=== PATIENT | female | born 1975 | race Caucasian/White ===

== ENCOUNTER → 2017-04-24 | Outpatient (CLI) | payer OTHER ==
[~2017-04-24] MED LIST: SODIUM CHLORIDE 0.9% 500 ML in EMPTY BAG 1 BAG IV PRN
[2017-04-24 09:17] VITALS: RESP 16
[2017-04-24 12:16] VITALS: BP 131/87; PULSE 93; TEMP 98
== END | disposition home or self-care (01) ==
LOC: PROCWHC3 08:53
PROVIDERS: ATTEND Internal Medicine
DX: D64.9 Anemia, unspecified (principal)
CPT/HCPCS: 86900; 86901; 86850; 86920; 36430; 36415; P9016

== ENCOUNTER → 2017-05-02 | Outpatient (CLI) | payer OTHER ==
--- NOTE | 2017-05-02 11:57 | US ---
EXAMINATION TYPE: US pelvis complete transvag DATE OF EXAM: 05/02/2017 COMPARISON: 04/11/2015 CLINICAL HISTORY: 42-year-old female N92.1 Menometrorrhagia. Heavy painful periods x couple years. Hx of fibroids, history of 4, para 4, TECHNIQUE: Transabdominal sonographic images of the pelvis were acquired. Transvaginal sonographic i mages were medically necessary to better assess the following anatomy: ovaries. Date of LMP: 04/08/2017 FINDINGS: Uterus: Anteverted measuring 17.0 x 9.7 x 12.6 cm. Uterus is heterogeneous and bulky with multiple f ocal fibroids, largest appears to be positioned centrally measuring 6.3 x 5.0 x 5.3 cm. Cervical nabo thian cysts. Endometrial Stripe: Limited visualization. A portion is seen measuring 1 cm. Right Ovary: not seen due to large uterus and overlying bowel gas. Left Ovary: 3.6 x 2.7 x 3.5 cm with a 2.3 x 2.0 x 1.9 cm hypoechoic lesion, probable corpus luteum o r hemorrhagic cyst. Small amount of pelvic free fluid. No evident adnexal abnormality. IMPRESSION: 1. Bulky fibroid uterus. Largest fibroid measures 6.3 cm and appears to be positioned centrally in th e uterus. Largest fibroid in 2016 was measured at 4.8 cm. 2. This secondarily limits assessment of the endometrial stripe thickness. A portion is visualized an d measures 1 cm. 3. A 2.3 cm corpus luteum or hemorrhagic cyst in the left ovary. 4. The right ovary could not be visualized. 5. Small amount of pelvic free fluid likely physiologic.
== END | disposition home or self-care (01) ==
LOC: RADUSWWP 10:39
PROVIDERS: ATTEND Internal Medicine
DX: D25.9 Leiomyoma of uterus, unspecified (principal)
CPT/HCPCS: 76830; 76856

== ENCOUNTER 2017-05-08 18:42 | Emergency (ER) | payer OTHER ==
[2017-05-08] MEDS ORDERED: SODIUM CHLORIDE 0.9% 1,000 ML IV STA ×2 (19:05)
[2017-05-08] MEDS ORDERED: MORPHINE SULFATE 4 MG/ML SYRINGE IVP STA ×2 (19:18→20:40)
[2017-05-08 19:56] LABS: ALT 21 U/L (9-52); AST 19 U/L (14-36); Albumin 3.5 g/dL (3.5-5.0); Alkaline Phosphatase 99 U/L (38-126); Amylase 31 U/L (30-110); Anion Gap 11 mmol/L; Blood Urea Nitrogen 16 mg/dL (7-17); Calcium 8.9 mg/dL (8.4-10.2); Carbon Dioxide 24 mmol/L (22-30); Chloride 102 mmol/L (98-107); Glucose 278 mg/dL (74-99); Lipase 37 U/L (23-300); Potassium 4.3 mmol/L (3.5-5.1); Sodium 137 mmol/L (137-145); Total Bilirubin 0.3 mg/dL (0.2-1.3); Total Protein 6.2 g/dL (6.3-8.2)
[2017-05-08 19:58] LABS: Anisocytosis Slight; Basophils % (A) 0 %; Eosinophils # (A) 0.2 k/uL (0-0.7); Eosinophils % (A) 2 %; HCT 27.7 % (34.0-46.0); Hypochromasia Marked; Lymphocytes # (A) 1.4 k/uL (1.0-4.8); Lymphocytes % (A) 11 %; MCH 16.7 pg (25.0-35.0); MCHC 25.4 g/dL (31.0-37.0); MCV 65.7 fL (80.0-100.0); Microcytosis Marked; Monocytes % (A) 7 %; Neutrophils # (A) 10.4 k/uL (1.3-7.7); Neutrophils % (A) 80 %; Platelet Count 342 k/uL (150-450); Poikilocytosis Slight; RBC 4.21 m/uL (3.80-5.40); RDW 19.8 % (11.5-15.5)
--- NOTE | 2017-05-08 19:59 | ED ---
Abdominal Pain HPI - General Chief Complaint: Abdominal Pain Stated Complaint: menstrual cramps Time Seen by Provider: 05/08/17 18:57 Source: patient, RN notes reviewed, old records reviewed Mode of arrival: ambulatory Limitations: no limitations - History of Present Illness Initial Comments: This patient is a 42-year-old female process emergency department today chief complaint of severe vaginal bleeding and cramping. She reports that she is planning to have a hysterectomy at [facility] but does not have a scheduled time with this would occur. Patient states that she's been having severe bleeding over the past 4 days. This is earlier than her usual menstrual cycle, she relates that she had to have a blood transfusion 2 weeks ago due to significant anemai related to chronic heavy bleeding. She relates that she does not follow an OBGYN here. She relates that she usually has 2-3 days of severe pain and bleeding during mid menstrual cycle. No nausea, vomiting, fever, chills , urinary symptoms. - Related Data Home Medications Medication Instructions Recorded Confirmed Naproxen Sodium [Aleve] 440 mg PO BID PRN 04/24/17 05/08/17 Y-Cramp Herbal Supplement 1 - 3 cap PO DAILY 05/08/17 05/08/17 Previous Rx's Medication Instructions Recorded Acetaminophen-Codeine 300-30mg 1 tab PO Q6H PRN #20 tablet 05/08/17 [Tylenol #3] Ferrous Sulfate [Iron] 325 mg PO DAILY #30 tablet 05/08/17 medroxyPROGESTERone [Provera] 10 mg PO DAILY 5 Days 05/08/17 Allergies Allergy/AdvReac Type Severity Reaction Status Date / Time No Known Allergies Allergy Verified 05/08/17 19:26 Review of Systems ROS Statement: Those systems with pertinent positive or pertinent negative responses have been documented in the HPI. ROS Other: All systems not noted in ROS Statement are negative. Past Medical History Past Medical History: No Reported History History of Any Multi-Drug Resistant Organisms: None Reported Past Surgical History: Section Past Psychological History: No Psychological Hx Reported Smoking Status: Current every day smoker Past Alcohol Use History: None Reported Past Drug Use History: None Reported General Exam - General Exam Comments Initial Comments: This is a 42 year old female, no acute distress. Limitations: no limitations General appearance: alert, in no apparent distress Head exam: Present: atraumatic, normocephalic, normal inspection Eye exam: Present: normal appearance, PERRL, EOMI. Absent: scleral icterus, conjunctival injection, periorbital swelling ENT exam: Present: normal exam, mucous membranes moist Neck exam: Present: normal inspection. Absent: tenderness, meningismus, lymphadenopathy Respiratory exam: Present: normal lung sounds bilaterally. Absent: respiratory distress, wheezes, rales, rhonchi, stridor Cardiovascular Exam: Present: regular rate, normal rhythm, normal heart sounds. Absent: systolic murmur, diastolic murmur, rubs, gallop, clicks GI/Abdominal exam: Present: soft, tenderness (Lower abdominal tenderness to palpation. ), normal bowel sounds. Absent: distended, guarding, rebound, rigid Extremities exam: Present: normal inspection, full ROM, normal capillary refill. Absent: tenderness, pedal edema, joint swelling, calf tenderness Back exam: Present: normal inspection Neurological exam: Present: alert, oriented X3, CN II-XII intact Psychiatric exam: Present: normal affect, normal mood Course Vital Signs 05/08/17 05/08/17 05/08/17 18:44 20:10 23:43 Temperature 98.1 F 98.2 F Pulse Rate 112 H 116 H 113 H Respiratory 20 18 18 Rate Blood Pressure 181/78 167/74 148/66 O2 Sat by Pulse 98 98 97 Oximetry Medical Decision Making - Medical Decision Making This patient is a 42 year old female, with severe menstrual bleeding and cramping pain. She reports that she had to have a transfusion 2 weeks ago due to significant anemai. Patient reports that she has been bleeding for 3 days at this time. Patient is planning ot have hysterectomy with [facility] soon. She has a consult appt next week. She relates that she has not been taking her iron daily. She had an US one week ago showing uterine fibroids and thickend endometrium. Today due to significant tenderness, patient underwent CT scan. CT shows enlarged uterus and fibriods. No other acute changes. Patient did have low hemoglobin at 7. She does have vagnial bleedling, but it during pelvic exam there was no significant clotting but midl to moderate bleeding. AT this time I discussed with Dr. Tovar, with chronic heavy bleeding her hemoglobin ans been at lower levels for awhile. Discused starting patient o progesterione to help stop the bleeding and given dose in ED at this time. No clotting risk factors noted. She will be started on iron, and discharged with pain medication for severe cramping. She is advised she needs to follow up with PCP in 1-2 days for repeat CBC and return parameters were discussed. - Lab Data Result diagrams: 05/08/17 19:30 05/08/17 19:30 Lab Results 05/08/17 05/08/17 05/08/17 Range/Units 19:30 19:30 19:30 WBC 13.0 H (3.8-10.6) k/uL RBC 4.21 (3.80-5.40) m/uL Hgb 7.0 L* (11.4-16.0) gm/dL Hct 27.7 L (34.0-46.0) % MCV 65.7 L (80.0-100.0) fL MCH 16.7 L (25.0-35.0) pg MCHC 25.4 L (31.0-37.0) g/dL RDW 19.8 H (11.5-15.5) % Plt Count 342 (150-450) k/uL Neutrophils % 80 % Lymphocytes % 11 % Monocytes % 7 % Eosinophils % 2 % Basophils % 0 % Neutrophils # 10.4 H (1.3-7.7) k/uL Lymphocytes # 1.4 (1.0-4.8) k/uL Monocytes # 1.0 (0-1.0) k/uL Eosinophils # 0.2 (0-0.7) k/uL Basophils # 0.0 (0-0.2) k/uL Hypochromasia Marked Poikilocytosis Slight Anisocytosis Slight Microcytosis Marked PT (9.0-12.0) sec INR (<1.2) APTT (22.0-30.0) sec Sodium 137 (137-145) mmol/L Potassium 4.3 (3.5-5.1) mmol/L Chloride 102 (98-107) mmol/L Carbon Dioxide 24 (22-30) mmol/L Anion Gap 11 mmol/L BUN 16 (7-17) mg/dL Creatinine 0.50 L (0.52-1.04) mg/dL Est GFR (MDRD) Af Amer >60 (>60 ml/min/1.73 sqM) Est GFR (MDRD) Non-Af >60 (>60 ml/min/1.73 sqM) Glucose 278 H (74-99) mg/dL Calcium 8.9 (8.4-10.2) mg/dL Total Bilirubin 0.3 (0.2-1.3) mg/dL AST 19 (14-36) U/L ALT 21 (9-52) U/L Alkaline Phosphatase 99 (38-126) U/L Total Protein 6.2 L (6.3-8.2) g/dL Albumin 3.5 (3.5-5.0) g/dL Amylase 31 (30-110) U/L Lipase 37 (23-300) U/L Urine Color Urine Appearance (Clear) Urine pH (5.0-8.0) Ur Specific [place] (1.001-1.035) Urine Protein (Negative) Urine Glucose (UA) (Negative) Urine Ketones (Negative) Urine Blood (Negative) Urine Nitrite (Negative) Urine Bilirubin (Negative) Urine Urobilinogen (<2.0) mg/dL Ur Leukocyte Esterase (Negative) Urine RBC (0-5) /hpf Urine WBC (0-5) /hpf Ur Squamous Epith Cells (0-4) /hpf Urine Bacteria (None) /hpf Urine Mucus (None) /hpf Urine HCG, Qual (Not Detectd) Blood Type O Positive Blood Type Recheck No Antibody Screen NEGATIVE Spec Expiration Date 05/11/2017 - 232905/08/17 05/08/17 05/08/17 Range/Units 19:30 19:30 21:36 WBC (3.8-10.6) k/uL RBC (3.80-5.40) m/uL Hgb (11.4-16.0) gm/dL Hct (34.0-46.0) % MCV (80.0-100.0) fL MCH (25.0-35.0) pg MCHC (31.0-37.0) g/dL RDW (11.5-15.5) % Plt Count (150-450) k/uL Neutrophils % % Lymphocytes % % Monocytes % % Eosinophils % % Basophils % % Neutrophils # (1.3-7.7) k/uL Lymphocytes # (1.0-4.8) k/uL Monocytes # (0-1.0) k/uL Eosinophils # (0-0.7) k/uL Basophils # (0-0.2) k/uL Hypochromasia Poikilocytosis Anisocytosis Microcytosis PT 9.8 (9.0-12.0) sec INR 1.0 (<1.2) APTT 23.5 (22.0-30.0) sec Sodium (137-145) mmol/L Potassium (3.5-5.1) mmol/L Chloride (98-107) mmol/L Carbon Dioxide (22-30) mmol/L Anion Gap mmol/L BUN (7-17) mg/dL Creatinine (0.52-1.04) mg/dL Est GFR (MDRD) Af Amer (>60 ml/min/1.73 sqM) Est GFR (MDRD) Non-Af (>60 ml/min/1.73 sqM) Glucose (74-99) mg/dL Calcium (8.4-10.2) mg/dL Total Bilirubin (0.2-1.3) mg/dL AST (14-36) U/L ALT (9-52) U/L Alkaline Phosphatase (38-126) U/L Total Protein (6.3-8.2) g/dL Albumin (3.5-5.0) g/dL Amylase (30-110) U/L Lipase (23-300) U/L Urine Color Light Red Urine Appearance Clear (Clear) Urine pH 5.0 (5.0-8.0) Ur Specific [place] 1.031 (1.001-1.035) Urine Protein 1+ H (Negative) Urine Glucose (UA) 4+ H (Negative) Urine Ketones Trace H (Negative) Urine Blood Large H (Negative) Urine Nitrite Negative (Negative) Urine Bilirubin Negative (Negative) Urine Urobilinogen 2.0 (<2.0) mg/dL Ur Leukocyte Esterase Trace H (Negative) Urine RBC >182 H (0-5) /hpf Urine WBC 15 H (0-5) /hpf Ur Squamous Epith Cells 2 (0-4) /hpf Urine Bacteria Rare H (None) /hpf Urine Mucus Moderate H (None) /hpf Urine HCG, Qual Not Detected (Not Detectd) Blood Type Blood Type Recheck Antibody Screen Spec Expiration Date - Radiology Data Radiology results: report reviewed CT and pelvis shows moderately enlarged uterus probably due to fibroids. Endometrial mass cannot be excluded. Spinal stenosis at L4-L5. L5-S1 first- degree spondylolisthesis. Disposition Clinical Impression: Menstrual cramp, Abnormal uterine and vaginal bleeding, unspecified, Anemia Disposition: HOME SELF-CARE Condition: Good Instructions: Dysfunctional Uterine Bleeding (ED) Additional Instructions: Patient advised to follow-up within the next 1-2 days with primary care physician. Patient should take the hormones as directed. Patient also needs to take pain medicine and make sure the her taking an iron supplement daily. Return to the emergency department if any alarming signs or symptoms occur. Recommend repeating blood work with PCP in the next 1-2 days. Prescriptions: Acetaminophen-Codeine 300-30mg [Tylenol #3] 1 tab PO Q6H PRN #20 tablet PRN Reason: Pain Ferrous Sulfate [Iron] 325 mg PO DAILY #30 tablet medroxyPROGESTERone [Provera] 10 mg PO DAILY 5 Days Referrals: Jerica Sanon MD [Primary Care Provider] - 1-2 days Time of Disposition: 23:16
[2017-05-08 20:08] LABS: Appearance,Urine Clear (Clear); Bacteria,Urine Rare /hpf; Bilirubin,Urine Negative (Negative); Blood,Urine Large (Negative); Color,Urine Light Red; Glucose,Urine (UA) 4+ (Negative); Ketones,Urine Trace (Negative); Leukocyte Esterase,Urine Trace (Negative); Mucus,Urine Moderate /hpf; Protein,Urine 1+ (Negative); RBC,Urine >182 /hpf (0-5); Specific Gravity,Urine 1.031 (1.001-1.035); Squamous Epithelial Cell,Urine 2 /hpf (0-4); WBC,Urine 15 /hpf (0-5)
[2017-05-08 20:12] VITALS: RESP 18
[2017-05-08] MEDS ORDERED: RX INFO: IV CONTRAST WAS GIVEN 1 EACH MISC MISCELLANE PRN (20:35)
--- NOTE | 2017-05-08 21:55 | CT ---
EXAMINATION TYPE: CT abdomen pelvis w con DATE OF EXAM: 05/08/2017 COMPARISON: NONE HISTORY: Menstrual cramps and excessive bleeding. CT DLP: 2296.8 mGycm Automated exposure control for dose reduction was used. TECHNIQUE: Helical acquisition of images was performed from the lung bases through the pelvis. CONTRAST: Performed without Oral Contrast and with IV Contrast, patient injected with 100 mL of Omnipaque 300. FINDINGS: There is mild infiltrate and atelectasis at the right lung base. There is no pleural effusion. Heart size is normal. Liver spleen pancreas gallbladder appear normal. Bile ducts are not dilated. There is no adrenal mass. Kidneys show satisfactory contrast opacification. There is no hydronephrosi s. There is no retroperitoneal adenopathy. There is no ascites. Uterus is enlarged and measures 15 x 9.5 cm. There are probably multiple fibroids. There is no free fluid in the pelvis. Appendix appears normal. I see no intestinal wall thickening. There are no dilated loops. There is spondylolysis of L5 with first-degree L5-S1 spondylolisthesis. IMPRESSION: MODERATELY ENLARGED UTERUS PROBABLY DUE TO FIBROIDS. ENDOMETRIAL MASS CANNOT BE EXCLUDED. SPINAL STENOSIS AT L4-5. L5-S1 FIRST-DEGREE SPONDYLOLISTHESIS. If there is persistent clinical indication to evaluate the uterus MR scan would be helpful.
[2017-05-08 22:05] LABS: Partial Thromboplastin Time 23.5 sec (22.0-30.0); Prothrombin Time 9.8 sec (9.0-12.0)
[2017-05-08] MEDS ORDERED: ACET/COD 300 MG/30 MG STARTER PACK 6 TAB BTL PO STA (23:32)
[2017-05-08 23:44] VITALS: BP 148/66; PULSE 113; TEMP 98.2
== END 2017-05-08 23:43 | disposition home or self-care (01) ==
LOC: EC 18:42
DX: N93.9 Abnormal uterine and vaginal bleeding, unspecified (principal); N94.6 Dysmenorrhea, unspecified; D64.9 Anemia, unspecified; F17.200 Nicotine dependence, unspecified, uncomplicated; Z79.899 Other long term (current) drug therapy
CPT/HCPCS: 36415; 86900; 86901; 80053; 82150; 83690; 85025; 85610; 85730; 86850; 81001; 81025; 74177; 99285; 96374; 96376; 96361 ×4; J2270; Q9967

== ENCOUNTER → 2017-05-13 | Outpatient (CLI) | payer OTHER ==
[2017-05-13 11:21] VITALS: RESP 14
[2017-05-13 12:30] VITALS: BP 136/85; PULSE 85; TEMP 98.6
== END | disposition home or self-care (01) ==
LOC: PROCWHC3 09:12
PROVIDERS: ATTEND Internal Medicine
DX: D64.9 Anemia, unspecified (principal)
CPT/HCPCS: 86900; 86901; 86850; 86920; 36430; P9016

== ENCOUNTER → 2017-05-15 | Outpatient (CLI) | payer OTHER ==
[2017-05-15 09:59] LABS: Anisocytosis Moderate; HCT 26.7 % (34.0-46.0); HGB 7.1 gm/dL (11.4-16.0); Hypochromasia Marked; MCH 17.7 pg (25.0-35.0); MCHC 26.6 g/dL (31.0-37.0); MCV 66.7 fL (80.0-100.0); Mean Platelet Volume 8.1; Microcytosis Marked; Platelet Count 445 k/uL (150-450); Poikilocytosis Moderate; RBC 4.01 m/uL (3.80-5.40); RDW 22.1 % (11.5-15.5); WBC 9.9 k/uL (3.8-10.6)
[2017-05-15 10:03] LABS: Partial Thromboplastin Time 22.3 sec (22.0-30.0); Prothrombin Time 9.7 sec (9.0-12.0)
== END | disposition home or self-care (01) ==
LOC: LABWHC1 08:46
PROVIDERS: ATTEND Obstetrics & Gynecology
DX: D64.9 Anemia, unspecified (principal); E16.2 Hypoglycemia, unspecified
CPT/HCPCS: 36415; 82947; 85027; 85610; 85730

== ENCOUNTER 2019-09-12 01:39 | Emergency (ER) | payer OTHER ==
[2019-09-12 01:45] VITALS: RESP 18
[2019-09-12] MEDS ORDERED: SODIUM CHLORIDE 0.9% 1,000 ML IV STA (01:53)
--- NOTE | 2019-09-12 01:57 | ED ---
Abdominal Pain HPI - General Chief Complaint: Abdominal Pain Stated Complaint: Abd pain Time Seen by Provider: 09/12/19 01:46 Source: EMS Mode of arrival: EMS Limitations: no limitations - History of Present Illness Initial Comments: 44-year-old female patient presents to the emergency department today for evaluation of abdominal pain and cramping. Patient states that she has been having abdominal pain for quite some time but is discussed to much to manage tonight. Patient states she has been nauseated and unable to eat. States that she was evaluated at [facility] on 08/24/19. Patient states that she was found to have extensive uterine fibroids and is scheduled to undergo hysterectomy on 09/22/19. States she was started on Metformin for elevated blood sugar and progesterone to shrink the fibroids. Patient states that she does have foul clear smelling vaginal discharge which has been present since before her visit to [place]. She denies any fever or chills. Denies constipation or diarrhea. Denies any hematuria, dysuria, urinary frequency, urinary urgency. Patient denies any recent rash, cough, shortness of breath, chest pain, back pa in, numbness, tingling, dizziness, weakness, headache, visual changes, or any other complaints. - Related Data Home Medications Medication Instructions Recorded Confirmed Y-Cramp Herbal Supplement 1 - 3 cap PO DAILY 05/08/17 05/13/17 Previous Rx's Medication Instructions Recorded Acetaminophen-Codeine 300-30mg 1 tab PO Q6H PRN #20 tablet 05/08/17 [Tylenol #3] Ferrous Sulfate [Iron] 325 mg PO DAILY #30 tablet 05/08/17 medroxyPROGESTERone [Provera] 10 mg PO DAILY 5 Days 05/08/17 Allergies Allergy/AdvReac Type Severity Reaction Status Date / Time No Known Allergies Allergy Verified 09/12/19 01:45 Review of Systems ROS Statement: Those systems with pertinent positive or pertinent negative responses have been documented in the HPI. ROS Other: All systems not noted in ROS Statement are negative. Past Medical History Past Medical History: No Reported History Additional Past Medical History / Comment(s): hx heavy menses x 4-5 years, History of Any Multi-Drug Resistant Organisms: None Reported Past Surgical History: Section Past Anesthesia/Blood Transfusion Reactions: No Reported Reaction Past Psychological History: No Psychological Hx Reported Smoking Status: Current every day smoker Past Alcohol Use History: None Reported Past Drug Use History: Marijuana - Past Family History Mother Family Medical History: No Reported History Father Additional Family Medical History / Comment(s): SPINAL MENINGITIS Brother(s) Family Medical History: No Reported History General Exam Limitations: no limitations General appearance: alert, in no apparent distress, other (Physical well- developed, well-nourished adult female patient in no acute distress. Vital signs upon presentation are temperature 98.4F, pulse 100, respirations 18, blood pressure 100/86, pulse ox 99% on room air.) Eye exam: Present: normal appearance, PERRL, EOMI. Absent: scleral icterus, conjunctival injection, periorbital swelling ENT exam: Present: normal exam, normal oropharynx, mucous membranes moist Respiratory exam: Present: normal lung sounds bilaterally. Absent: respiratory distress, wheezes, rales, rhonchi, stridor Cardiovascular Exam: Present: regular rate, normal rhythm, normal heart sounds. Absent: systolic murmur, diastolic murmur, rubs, gallop, clicks GI/Abdominal exam: Present: soft, distended, tenderness (Generalized tenderness), normal bowel sounds. Absent: guarding, rebound, rigid Neurological exam: Present: alert, oriented X3, CN II-XII intact Psychiatric exam: Present: normal affect, normal mood Skin exam: Present: warm, dry, intact, normal color. Absent: rash Course Vital Signs 09/12/19 09/12/19 09/12/19 01:41 03:46 04:06 Temperature 98.4 F 98.4 F Pulse Rate 100 80 99 Respiratory 18 18 18 Rate Blood Pressure 100/86 160/74 144/92 O2 Sat by Pulse 99 97 97 Oximetry 09/12/19 04:16 Temperature 99.1 F Pulse Rate 99 Respiratory 18 Rate Blood Pressure 143/71 O2 Sat by Pulse 98 Oximetry Medical Decision Making - Medical Decision Making Care was handed over to my attending Dr. Quesada at 0300. - Lab Data Result diagrams: 09/12/19 01:54 09/12/19 01:54 Lab Results 09/12/19 09/12/19 09/12/19 Range/Units 01:54 01:54 01:54 WBC 16.7 H (3.8-10.6) k/uL RBC 3.78 L (3.80-5.40) m/uL Hgb 6.8 L* (11.4-16.0) gm/dL Hct 26.2 L (34.0-46.0) % MCV 69.2 L (80.0-100.0) fL MCH 17.9 L (25.0-35.0) pg MCHC 25.9 L (31.0-37.0) g/dL RDW 23.4 H (11.5-15.5) % Plt Count 653 H (150-450) k/uL Neutrophils % 88 % Lymphocytes % 6 % Monocytes % 4 % Eosinophils % 2 % Basophils % 0 % Neutrophils # 14.7 H (1.3-7.7) k/uL Lymphocytes # 1.0 (1.0-4.8) k/uL Monocytes # 0.7 (0-1.0) k/uL Eosinophils # 0.3 (0-0.7) k/uL Basophils # 0.0 (0-0.2) k/uL Hypochromasia Marked Poikilocytosis Slight Anisocytosis Moderate Microcytosis Marked Sodium 135 L (137-145) mmol/L Potassium 4.0 (3.5-5.1) mmol/L Chloride 103 (98-107) mmol/L Carbon Dioxide 24 (22-30) mmol/L Anion Gap 8 mmol/L BUN 8 (7-17) mg/dL Creatinine 0.46 L (0.52-1.04) mg/dL Est GFR (CKD-EPI)AfAm >90 (>60 ml/min/1.73 sqM) Est GFR (CKD-EPI)NonAf >90 (>60 ml/min/1.73 sqM) Glucose 225 H (74-99) mg/dL Plasma Lactic Acid Jung 1.0 (0.7-2.0) mmol/L Calcium 8.3 L (8.4-10.2) mg/dL Total Bilirubin 0.3 (0.2-1.3) mg/dL AST 15 (14-36) U/L ALT 8 (4-34) U/L Alkaline Phosphatase 104 (38-126) U/L Total Protein 6.2 L (6.3-8.2) g/dL Albumin 2.7 L (3.5-5.0) g/dL Amylase 48 (30-110) U/L Lipase 164 (23-300) U/L Urine Color Urine Appearance (Clear) Urine pH (5.0-8.0) Ur Specific [place] (1.001-1.035) Urine Protein (Negative) Urine Glucose (UA) (Negative) Urine Ketones (Negative) Urine Blood (Negative) Urine Nitrite (Negative) Urine Bilirubin (Negative) Urine Urobilinogen (<2.0) mg/dL Ur Leukocyte Esterase (Negative) Urine RBC (0-5) /hpf Urine WBC (0-5) /hpf Ur Squamous Epith Cells (0-4) /hpf Urine Mucus (None) /hpf Urine HCG, Qual (Not Detectd) Blood Type Blood Type Recheck Bld Type Recheck Status Antibody Screen Crossmatch Spec Expiration Date 09/12/19 09/12/19 09/12/19 Range/Units 03:05 04:08 04:08 WBC (3.8-10.6) k/uL RBC (3.80-5.40) m/uL Hgb (11.4-16.0) gm/dL Hct (34.0-46.0) % MCV (80.0-100.0) fL MCH (25.0-35.0) pg MCHC (31.0-37.0) g/dL RDW (11.5-15.5) % Plt Count (150-450) k/uL Neutrophils % % Lymphocytes % % Monocytes % % Eosinophils % % Basophils % % Neutrophils # (1.3-7.7) k/uL Lymphocytes # (1.0-4.8) k/uL Monocytes # (0-1.0) k/uL Eosinophils # (0-0.7) k/uL Basophils # (0-0.2) k/uL Hypochromasia Poikilocytosis Anisocytosis Microcytosis Sodium (137-145) mmol/L Potassium (3.5-5.1) mmol/L Chloride (98-107) mmol/L Carbon Dioxide (22-30) mmol/L Anion Gap mmol/L BUN (7-17) mg/dL Creatinine (0.52-1.04) mg/dL Est GFR (CKD-EPI)AfAm (>60 ml/min/1.73 sqM) Est GFR (CKD-EPI)NonAf (>60 ml/min/1.73 sqM) Glucose (74-99) mg/dL Plasma Lactic Acid Jung (0.7-2.0) mmol/L Calcium (8.4-10.2) mg/dL Total Bilirubin (0.2-1.3) mg/dL AST (14-36) U/L ALT (4-34) U/L Alkaline Phosphatase (38-126) U/L Total Protein (6.3-8.2) g/dL Albumin (3.5-5.0) g/dL Amylase (30-110) U/L Lipase (23-300) U/L Urine Color Yellow Urine Appearance Clear (Clear) Urine pH 6.5 (5.0-8.0) Ur Specific [place] >1.050 H (1.001-1.035) Urine Protein 1+ H (Negative) Urine Glucose (UA) Negative (Negative) Urine Ketones 1+ H (Negative) Urine Blood Large H (Negative) Urine Nitrite Negative (Negative) Urine Bilirubin Negative (Negative) Urine Urobilinogen 3.0 (<2.0) mg/dL Ur Leukocyte Esterase Moderate H (Negative) Urine RBC 79 H (0-5) /hpf Urine WBC 17 H (0-5) /hpf Ur Squamous Epith Cells 2 (0-4) /hpf Urine Mucus Rare H (None) /hpf Urine HCG, Qual Not Detected (Not Detectd) Blood Type O Positive Blood Type Recheck O Pos Bld Type Recheck Status No Antibody Screen NEGATIVE Crossmatch See Detail Spec Expiration Date 09/15/2019 - 2306 - Radiology Data Radiology results: report reviewed, image reviewed CT abdomen and pelvis is obtained with contrast. Report was reviewed in its entirety. Impression by Dr. Dewitt shows large cystic mass in the pelvis in the midline toward the right side. Appendix not visualized. Complex density in the vaginal vault and at the cervix. Extensive inflammatory changes in the right lower quadrant and right paracolic gutter. I would consider possibilities of tubo-ovarian abscess as well as ruptured appendicitis with large abscess. Appearance of the vaginal vault to be blood clot and debris retained in the vagina. Dilated mid and proximal small bowel suggestive of significant ileus or partial mechanical obstruction. Enlarged uterus consistent with fibroid cement old computed tomography scan. Decreased contrast in the kidneys on delayed images suggestive of acute renal failure. Disposition Clinical Impression: Abdominal mass Disposition: OTHER INSTITUTION NOT DEFINED Condition: Serious Referrals: Jerica Sanon MD [Primary Care Provider] - 1-2 days - Out of Hospital Transfer - Req. Specs Out of Hospital Transfer - Requested Specifics: Other Emergency Center
[2019-09-12 01:58] LABS: Anisocytosis Moderate; Basophils % (A) 0 %; Eosinophils # (A) 0.3 k/uL (0-0.7); Eosinophils % (A) 2 %; HCT 26.2 % (34.0-46.0); Hypochromasia Marked; Lymphocytes % (A) 6 %; MCH 17.9 pg (25.0-35.0); MCHC 25.9 g/dL (31.0-37.0); MCV 69.2 fL (80.0-100.0); Mean Platelet Volume 6.9; Microcytosis Marked; Monocytes # (A) 0.7 k/uL (0-1.0); Monocytes % (A) 4 %; Neutrophils # (A) 14.7 k/uL (1.3-7.7); Neutrophils % (A) 88 %; Platelet Count 653 k/uL (150-450); Poikilocytosis Slight; RBC 3.78 m/uL (3.80-5.40); RDW 23.4 % (11.5-15.5); WBC 16.7 k/uL (3.8-10.6)
[2019-09-12 02:05] LABS: HGB 6.8 gm/dL (11.4-16.0)
[2019-09-12 02:09] LABS: ALT 8 U/L (4-34); AST 15 U/L (14-36); African American GFR (CKD) >90 (>60 ml/min/1.73 sqM); Albumin 2.7 g/dL (3.5-5.0); Alkaline Phosphatase 104 U/L (38-126); Amylase 48 U/L (30-110); Anion Gap 8 mmol/L; Blood Urea Nitrogen 8 mg/dL (7-17); Calcium 8.3 mg/dL (8.4-10.2); Carbon Dioxide 24 mmol/L (22-30); Chloride 103 mmol/L (98-107); Glucose 225 mg/dL (74-99); Non-African American GFR(CKD) >90 (>60 ml/min/1.73 sqM); Sodium 135 mmol/L (137-145); Total Bilirubin 0.3 mg/dL (0.2-1.3); Total Protein 6.2 g/dL (6.3-8.2)
--- NOTE | 2019-09-12 03:00 | CT ---
EXAMINATION TYPE: CT abdomen pelvis w con DATE OF EXAM: 09/12/2019 COMPARISON: None HISTORY: Abd Pain CT DLP: 1800.20 mGycm Automated exposure control for dose reduction was used. CONTRAST: Performed with IV Contrast, patient injected with 100 mL of Isovue 300. There is minimal atelectasis right posterior lung base. There is no pleural effusion. Heart size is n ormal. The stomach is intact. Liver spleen pancreas appear normal. Bile ducts are not dilated. Gallbladder h as normal size. There is no adrenal mass. Kidneys have normal size and contour. There is satisfactory contrast opacification. There is no hydro nephrosis. There is decreased contrast in the kidneys on the delayed images. Ureters are not dilated. There is no retroperitoneal adenopathy. Bladder is almost empty. There is no inguinal hernia. Uterus is markedly enlarged and measures 19 x 9 cm with some complex enlargement of the vaginal vault and cervix. There is a large cystic fluid collection in the pelvis that measures 14 x 8 x 19 cm and is in continuity with a large portion of the uterine fundus. The origin of the fluid is not clear. There are multiple dilated air and fluid-filled small bowel loops that measure up to 3.5 cm. There is extensive fat stranding in the right paracolic gutter. Appendix is not identified. The previous exam shows normal appendix. There is L5 spondylolysis with a first-degree L5-S1 spondylolisthesis. There is no compression fractu re. There is narrowing of L5-S1 disc space. The bony pelvis is intact. IMPRESSION: Large cystic mass in the pelvis in the midline and towards the right side. Appendix not visualized. C omplex density in the vaginal vault and at the cervix. Extensive inflammatory changes in the right lo wer quadrant and right paracolic gutter. I would consider possibilities of tubo-ovarian abscess as well as ruptured appendicitis with large ab scess. Appearance of the vaginal vault could be blood clot and debris retained in the vagina. Dilated mid and proximal small bowel suggestive of significant ileus or partial mechanical obstructio n. Enlarged uterus consistent with fibroids similar to old CT scan. Decreased contrast in the kidneys on the delayed images suggestive of acute renal failure.
[2019-09-12] MEDS ORDERED: SODIUM CHLORIDE 0.9% 1,000 ML IV SCH (03:15)
[2019-09-12] MEDS ORDERED: PIPERACILLIN-TAZOBACTAM 3.375 GM in SODIUM CHLORIDE 0.9% 100 ML IVPB STA (03:20)
[2019-09-12] MEDS ORDERED: VANCOMYCIN IV PER PHARMACY 1 EACH MISC MISCELLANE PRN (03:20)
[2019-09-12] MEDS ORDERED: VANCOMYCIN 2,000 MG in SODIUM CHLORIDE 0.9% 500 ML 500 ML IVPB STA (03:21)
[2019-09-12] MEDS ORDERED: CLINDAMYCIN 600 MG in DEXTROSE 5% IN WATER 50 ML IVPB STA ×2 (03:24)
[2019-09-12] MEDS ORDERED: MORPHINE SULFATE 4 MG/ML SYRINGE IVP STA (03:50)
[2019-09-12 04:08] VITALS: PULSE 99
[2019-09-12 04:17] VITALS: BP 143/71; TEMP 99.1
[2019-09-12 04:19] LABS: Appearance,Urine Clear (Clear); Bilirubin,Urine Negative (Negative); Blood,Urine Large (Negative); Color,Urine Yellow; Glucose,Urine (UA) Negative (Negative); Ketones,Urine 1+ (Negative); Leukocyte Esterase,Urine Moderate (Negative); Mucus,Urine Rare /hpf; Nitrite,Urine Negative (Negative); PH, Urine 6.5 (5.0-8.0); Protein,Urine 1+ (Negative); RBC,Urine 79 /hpf (0-5); Squamous Epithelial Cell,Urine 2 /hpf (0-4); WBC,Urine 17 /hpf (0-5)
[2019-09-12 04:22] LABS: Specific Gravity,Urine >1.050 (1.001-1.035)
== END 2019-09-12 04:42 | disposition other institution (70) ==
LOC: EC 01:39
DX: R19.00 Intra-abdominal and pelvic swelling, mass and lump, unspecified site (principal); R11.0 Nausea; F17.200 Nicotine dependence, unspecified, uncomplicated
CPT/HCPCS: 36415; 86900; 86901; 80053; 82150; 83605; 83690; 85025; 86850; 86920; 81001; 81025; 87040; 87086; 74177; 99285; 96365; 96367; 96375; 96361; P9016; J2543; J3370; J2270; Q9967

== ENCOUNTER 2019-10-08 20:38 | Observation (INO) | payer OTHER ==
[2019-10-08 20:45] VITALS: RESP 18
[2019-10-08] MEDS ORDERED: SODIUM CHLORIDE 0.9% 500 ML 500 ML IV STA (21:12)
[2019-10-08] MEDS ORDERED: KETOROLAC 30 MG/ML 1 ML VIAL IVP STA (21:12)
--- NOTE | 2019-10-08 21:52 | XR ---
EXAMINATION: XR chest 2V DATE AND TIME: 10/08/2019 9:21 PM CLINICAL INDICATION: PHH; Chest Pain TECHNIQUE: Departmental protocol COMPARISON: None FINDINGS: The right hemidiaphragm is moderately elevated, not allowing full visualization of the right lower lo be. The lungs are nearly entirely clear. There are a few linear bands of added opacity at the left lung b ase and in the right midlung zone, likely subsegmental atelectasis. The pleural spaces are negative. The cardiac silhouette is not enlarged. The remainder of the mediastinal silhouette is unremarkable. The skeletal structures and soft tissues are negative for acute findings. IMPRESSION: No definite acute radiographic process.
--- NOTE | 2019-10-08 22:05 | ED ---
Extremity Problem HPI - General Chief complaint: Extremity Problem,Nontraumatic Stated complaint: Poss bloodclott in both legs Time Seen by Provider: 10/08/19 20:47 Source: patient, RN notes reviewed, old records reviewed Mode of arrival: ambulatory - History of Present Illness Initial comments: Patient is a 44-year-old female who presents to return today with 3 weeks of bilateral lower extremity swelling. Patient states that she's had this since before having hysterectomy surgery 2 weeks ago. She reports that during her hysterectomy surgery she had multiple complications including requiring a colostomy bag as well as had a right nephrostomy tube placed. After her eleuterio gunnar she now has a visiting nurse taking care of her at home. Patient states that she called her surgeon for the lower extremity swelling in her PCP who told her to come here for further evaluation. - Related Data Home Medications Medication Instructions Recorded Confirmed Cephalexin [Keflex] 500 mg PO QID 10/08/19 10/08/19 Docusate [Colace] 100 mg PO BID 10/08/19 10/08/19 Ferrous Sulfate [Iron] 325 mg PO TID 10/08/19 10/08/19 Fluconazole [Diflucan] 150 mg PO Q48H 10/08/19 10/08/19 HYDROcodone/APAP 7.5-325MG [[place] 1 tab PO QID PRN 10/08/19 10/08/19 7.5-325] Ibuprofen [Motrin] 600 mg PO Q4-6H PRN 10/08/19 10/08/19 Simethicone 80 mg PO QID PRN 10/08/19 10/08/19 Terconazole 1 applic VAGINAL DAILY 10/08/19 10/08/19 Allergies Allergy/AdvReac Type Severity Reaction Status Date / Time No Known Allergies Allergy Verified 10/08/19 23:03 Review of Systems ROS Statement: Those systems with pertinent positive or pertinent negative responses have been documented in the HPI. ROS Other: All systems not noted in ROS Statement are negative. Past Medical History Past Medical History: No Reported History Additional Past Medical History / Comment(s): hx heavy menses x 4-5 years, History of Any Multi-Drug Resistant Organisms: None Reported Past Surgical History: Section Additional Past Surgical History / Comment(s): hysterectomy Past Anesthesia/Blood Transfusion Reactions: No Reported Reaction Past Psychological History: No Psychological Hx Reported Smoking Status: Current every day smoker Past Alcohol Use History: None Reported Past Drug Use History: Marijuana - Past Family History Mother Family Medical History: No Reported History Father Additional Family Medical History / Comment(s): SPINAL MENINGITIS Brother(s) Family Medical History: No Reported History General Exam - General Exam Comments Initial Comments: 44-year-old female. Alert and oriented 3. No significant distress. General appearance: alert, in no apparent distress Head exam: Present: atraumatic, normocephalic, normal inspection Eye exam: Present: normal appearance, PERRL, EOMI. Absent: scleral icterus, conjunctival injection, periorbital swelling ENT exam: Present: normal exam, mucous membranes moist Neck exam: Present: normal inspection. Absent: tenderness, meningismus, lymphadenopathy Respiratory exam: Present: normal lung sounds bilaterally. Absent: respiratory distress, wheezes, rales, rhonchi, stridor Cardiovascular Exam: Present: regular rate, normal rhythm, normal heart sounds. Absent: systolic murmur, diastolic murmur, rubs, gallop, clicks GI/Abdominal exam: Present: soft, normal bowel sounds. Absent: distended, tenderness, guarding, rebound, rigid Extremities exam: Present: normal inspection, full ROM, normal capillary refill, other (1+ pitting edema bilaterally.). Absent: tenderness, pedal edema, joint swelling, calf tenderness Back exam: Present: normal inspection, other (Patient has not sought nephrostomy drain over the right flank. The site is well-appearing. Clear urine from the urostomy. ) Neurological exam: Present: alert, oriented X3, CN II-XII intact Psychiatric exam: Present: normal affect, normal mood Skin exam: Present: warm, dry, intact, normal color. Absent: rash Course Vital Signs 10/08/19 10/09/19 20:39 00:22 Temperature 98.2 F 98.2 F Pulse Rate 71 80 Respiratory 18 18 Rate Blood Pressure 156/67 O2 Sat by Pulse 100 97 Oximetry Medical Decision Making - Medical Decision Making 44-year-old female presents emergency department today for evaluation for bilateral lower extremity swelling. She reports this has been occurring for 3 weeks in 1 week prior to having a total hysterectomy surgery. Since hysterectomy surgery was completed hospital. patient had complications following the hysterectomy, she was requiring a colostomy on the right side of the abdomen and she does have a right-sided nephrostomy tube. patient states she also was supposed to have her lab levels checked after falling with her primary care doctor she's been chronically anemic. the patient's hemoglobin has improved slightly to 7.9. she was anemic due to heavy vaginal bleeding requiring the hysterectomy. Patient's white blood count is mildly elevated at 13.6 with left shift of 10.8 neutrophils. Blood cultures were completed. Sodium of 1:30. Potassium is low at 3.1. Kidney function is stable. Patient is found to have significant urinary tract infection with bacteria and greater than 182 white blood cells. Urine culture be completed. Patient's main complaint was here for lower extremity swelling she is found to have 1-2+ pitting edema bilaterally. Ultrasounds were completed and negative for DVT. She was found to have a positive d-dimer 3.1. She did mention to triage nurse that she was having some shortness of breath however my questioning she states she was not. She had a CT chest and into which is a for PE. There was evidence of some infiltrate. With concern for urinary tract infection and infiltrate on CT she received Rocephin. I discussed the case with Dr. Shen Concern for an indwelling nephrostomy tube with evidence of infection would like to admit the Patient for IV antibiotics. Consult urology if the nephrostomy can be removed. She states that she is supposed to follow with urology in 2 weeks to have the tube removed. - Lab Data Result diagrams: 10/08/19 22:31 10/08/19 22:31 Lab Results 10/08/19 10/08/19 10/08/19 Range/Units 22:31 22:31 22:31 WBC 13.6 H (3.8-10.6) k/uL RBC 3.27 L (3.80-5.40) m/uL Hgb 7.9 L (11.4-16.0) gm/dL Hct 26.2 L (34.0-46.0) % MCV 80.3 D (80.0-100.0) fL MCH 24.1 L (25.0-35.0) pg MCHC 30.0 L (31.0-37.0) g/dL RDW 18.6 H (11.5-15.5) % Plt Count 618 H (150-450) k/uL Neutrophils % 80 % Lymphocytes % 12 % Monocytes % 5 % Eosinophils % 2 % Basophils % 0 % Neutrophils # 10.8 H (1.3-7.7) k/uL Lymphocytes # 1.7 (1.0-4.8) k/uL Monocytes # 0.7 (0-1.0) k/uL Eosinophils # 0.3 (0-0.7) k/uL Basophils # 0.0 (0-0.2) k/uL Hypochromasia Marked Poikilocytosis Moderate Anisocytosis Slight Microcytosis Slight PT 10.4 (9.0-12.0) sec INR 1.0 (<1.2) APTT 27.4 (22.0-30.0) sec D-Dimer 3.15 H (<0.60) mg/L FEU Sodium 138 (137-145) mmol/L Potassium 3.1 L (3.5-5.1) mmol/L Chloride 107 (98-107) mmol/L Carbon Dioxide 25 (22-30) mmol/L Anion Gap 6 mmol/L BUN <2 L (7-17) mg/dL Creatinine 0.43 L (0.52-1.04) mg/dL Est GFR (CKD-EPI)AfAm >90 (>60 ml/min/1.73 sqM) Est GFR (CKD-EPI)NonAf >90 (>60 ml/min/1.73 sqM) Glucose 142 H (74-99) mg/dL Calcium 7.6 L (8.4-10.2) mg/dL Magnesium 1.1 L (1.6-2.3) mg/dL Total Bilirubin 0.2 (0.2-1.3) mg/dL AST 12 L (14-36) U/L ALT 7 (4-34) U/L Alkaline Phosphatase 117 (38-126) U/L Troponin I (0.000-0.034) ng/mL NT-Pro-B Natriuret Pep pg/mL Total Protein 5.4 L (6.3-8.2) g/dL Albumin 2.2 L (3.5-5.0) g/dL Urine Color Urine Appearance (Clear) Urine pH (5.0-8.0) Ur Specific [place] (1.001-1.035) Urine Protein (Negative) Urine Glucose (UA) (Negative) Urine Ketones (Negative) Urine Blood (Negative) Urine Nitrite (Negative) Urine Bilirubin (Negative) Urine Urobilinogen (<2.0) mg/dL Ur Leukocyte Esterase (Negative) Urine RBC (0-5) /hpf Urine WBC (0-5) /hpf Urine WBC Clumps (None) /hpf Urine Bacteria (None) /hpf Urine Mucus (None) /hpf 10/08/19 10/08/19 10/08/19 Range/Units 22:31 22:31 22:42 WBC (3.8-10.6) k/uL RBC (3.80-5.40) m/uL Hgb (11.4-16.0) gm/dL Hct (34.0-46.0) % MCV (80.0-100.0) fL MCH (25.0-35.0) pg MCHC (31.0-37.0) g/dL RDW (11.5-15.5) % Plt Count (150-450) k/uL Neutrophils % % Lymphocytes % % Monocytes % % Eosinophils % % Basophils % % Neutrophils # (1.3-7.7) k/uL Lymphocytes # (1.0-4.8) k/uL Monocytes # (0-1.0) k/uL Eosinophils # (0-0.7) k/uL Basophils # (0-0.2) k/uL Hypochromasia Poikilocytosis Anisocytosis Microcytosis PT (9.0-12.0) sec INR (<1.2) APTT (22.0-30.0) sec D-Dimer (<0.60) mg/L FEU Sodium (137-145) mmol/L Potassium (3.5-5.1) mmol/L Chloride (98-107) mmol/L Carbon Dioxide (22-30) mmol/L Anion Gap mmol/L BUN (7-17) mg/dL Creatinine (0.52-1.04) mg/dL Est GFR (CKD-EPI)AfAm (>60 ml/min/1.73 sqM) Est GFR (CKD-EPI)NonAf (>60 ml/min/1.73 sqM) Glucose (74-99) mg/dL Calcium (8.4-10.2) mg/dL Magnesium (1.6-2.3) mg/dL Total Bilirubin (0.2-1.3) mg/dL AST (14-36) U/L ALT (4-34) U/L Alkaline Phosphatase (38-126) U/L Troponin I <0.012 (0.000-0.034) ng/mL NT-Pro-B Natriuret Pep 1040 pg/mL Total Protein (6.3-8.2) g/dL Albumin (3.5-5.0) g/dL Urine Color Light Yellow Urine Appearance Cloudy H (Clear) Urine pH 6.5 (5.0-8.0) Ur Specific [place] 1.007 (1.001-1.035) Urine Protein 1+ H (Negative) Urine Glucose (UA) Negative (Negative) Urine Ketones Negative (Negative) Urine Blood Moderate H (Negative) Urine Nitrite Negative (Negative) Urine Bilirubin Negative (Negative) Urine Urobilinogen <2.0 (<2.0) mg/dL Ur Leukocyte Esterase Large H (Negative) Urine RBC 23 H (0-5) /hpf Urine WBC >182 H (0-5) /hpf Urine WBC Clumps Moderate H (None) /hpf Urine Bacteria Rare H (None) /hpf Urine Mucus Rare H (None) /hpf 10/08/19 23:50 EKG performed at 2220 shows normal sinus rhythm prolonged QT. Abnormal EKG. Ventricular rate of 84 beats were minute. Verbal is 124 ms. QRS duration is 90 ms. QT QTc is 412/486 ms. - Radiology Data Radiology results: report reviewed Chest x-ray shows no definite acute radiographic process. Ultrasound shows no sign of DVT in both legs. There is right-sided popliteal cyst.Chest CTA shows no evidence of pulmonary. Infiltrate and atelectasis on the right posterior lung base. Elevated right diaphragm. 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 Disposition Clinical Impression: UTI (urinary tract infection), Peripheral edema, Lung infiltrate on CT, Anemia Disposition: ADMITTED IP TO THIS HOSP Condition: Stable Is patient prescribed a controlled substance at d/c from ED?: No Referrals: Jerica Sanon MD [Primary Care Provider] - 1-2 days Time of Disposition: 01:10
--- NOTE | 2019-10-08 22:09 | US ---
EXAMINATION TYPE: US venous doppler duplex LE DATE OF EXAM: 10/08/2019 9:13 PM COMPARISON: NONE CLINICAL HISTORY: Swelling, 2 weeks post hysterectomy. Swelling and pain in bilateral legs x 3 weeks. Patient is 2 weeks post-hysterectomy. No hx of DVT. Patient does not take blood thinners. SIDE PERFORMED: Bilateral TECHNIQUE: The lower extremity deep venous system is examined utilizing real time linear array sonog jerry with graded compression, doppler sonography and color-flow sonography. VESSELS IMAGED: External Iliac Vein (EIV) Common Femoral Vein Deep Femoral Vein Greater Saphenous Vein * Femoral Vein Popliteal Vein Small Saphenous Vein * Proximal Calf Veins (* superficial vessels) Right Leg: No evidence of DVT in veins imaged at this time from prox calf veins to EIV. Edema is see n. Anechoic area seen posterior right knee measurin.9 x 2.1 x 0.8 cm. Left Leg: No evidence of DVT in veins imaged at this time from prox calf veins to EIV. Edema is seen . IMPRESSION: No sign of deep vein thrombosis in both legs. There is right side popliteal cyst.
[2019-10-08 22:45] LABS: Anisocytosis Slight; Basophils % (A) 0 %; Eosinophils # (A) 0.3 k/uL (0-0.7); Eosinophils % (A) 2 %; HCT 26.2 % (34.0-46.0); HGB 7.9 gm/dL (11.4-16.0); Hypochromasia Marked; Lymphocytes # (A) 1.7 k/uL (1.0-4.8); Lymphocytes % (A) 12 %; MCH 24.1 pg (25.0-35.0); Mean Platelet Volume 7.1; Microcytosis Slight; Monocytes # (A) 0.7 k/uL (0-1.0); Monocytes % (A) 5 %; Neutrophils # (A) 10.8 k/uL (1.3-7.7); Neutrophils % (A) 80 %; Platelet Count 618 k/uL (150-450); Poikilocytosis Moderate; RBC 3.27 m/uL (3.80-5.40); RDW 18.6 % (11.5-15.5); WBC 13.6 k/uL (3.8-10.6)
[2019-10-08 22:53] LABS: ALT 7 U/L (4-34); AST 12 U/L (14-36); African American GFR (CKD) >90 (>60 ml/min/1.73 sqM); Albumin 2.2 g/dL (3.5-5.0); Alkaline Phosphatase 117 U/L (38-126); Anion Gap 6 mmol/L; Blood Urea Nitrogen <2 mg/dL (7-17); Calcium 7.6 mg/dL (8.4-10.2); Carbon Dioxide 25 mmol/L (22-30); Chloride 107 mmol/L (98-107); Glucose 142 mg/dL (74-99); Magnesium 1.1 mg/dL (1.6-2.3); Non-African American GFR(CKD) >90 (>60 ml/min/1.73 sqM); Potassium 3.1 mmol/L (3.5-5.1); Sodium 138 mmol/L (137-145); Total Bilirubin 0.2 mg/dL (0.2-1.3); Total Protein 5.4 g/dL (6.3-8.2)
[2019-10-08 23:06] LABS: Partial Thromboplastin Time 27.4 sec (22.0-30.0); Prothrombin Time 10.4 sec (9.0-12.0)
[2019-10-08 23:20] LABS: D-Dimer 3.15 mg/L FEU (<0.60)
[2019-10-08 23:25] LABS: MCV 80.3 fL (80.0-100.0)
[2019-10-08 23:28] LABS: Appearance,Urine Cloudy (Clear); Bacteria,Urine Rare /hpf; Bilirubin,Urine Negative (Negative); Blood,Urine Moderate (Negative); Color,Urine Light Yellow; Glucose,Urine (UA) Negative (Negative); Ketones,Urine Negative (Negative); Leukocyte Esterase,Urine Large (Negative); Mucus,Urine Rare /hpf; Nitrite,Urine Negative (Negative); PH, Urine 6.5 (5.0-8.0); Protein,Urine 1+ (Negative); RBC,Urine 23 /hpf (0-5); Specific Gravity,Urine 1.007 (1.001-1.035); Urobilinogen,Urine <2.0 mg/dL (<2.0); WBC,Urine >182 /hpf (0-5)
[2019-10-08] MEDS ORDERED: cefTRIAXone IN SWFI 1,000 MG/10 ML SYRINGE IVP STA (23:46)
--- NOTE | 2019-10-09 00:24 | CT ---
EXAMINATION TYPE: CT chest angio for PE DATE OF EXAM: 10/09/2019 COMPARISON: None HISTORY: pe CT DLP: 783.8 mGycm Automated exposure control for dose reduction was used. CONTRAST: Performed with IV Contrast, patient injected with 75 mL of Isovue 370. There is some patchy infiltrate and atelectasis at the lung bases. There is no pleural effusion. Ther e is no evidence of a pulmonary mass. The heart size is normal. There is no pericardial effusion. The re are no hilar masses. There is no mediastinal adenopathy. Thoracic aorta shows no aneurysm or disse ction. There is normal contrast opacification of the pulmonary arteries. There are no filling defects. Thoracic vertebra show normal alignment. Disc spaces are fairly normal. There is no compression fract ure. Upper abdominal soft tissues are intact. There is bilateral nephrostomy tubes noted. IMPRESSION: No evidence of pulmonary embolism. Infiltrate and atelectasis at the right posterior lung base. [place] walter right diaphragm. This could relate to some diaphragm paralysis.
[2019-10-09] MEDS ORDERED: HYDROmorphone 1 MG/ML 1 ML SYRINGE IVP PRN (01:12)
[2019-10-09] MEDS ORDERED: ONDANSETRON 4 MG/2 ML VIAL IVP PRN (01:12)
[2019-10-09] MEDS ORDERED: IBUPROFEN 400 MG TAB PO PRN (01:12)
[2019-10-09] MEDS ORDERED: Acetaminophen-Codeine 300-30mg TAB PO PRN (01:12)
[2019-10-09] MEDS ORDERED: ACETAMINOPHEN TAB 325 MG TAB PO PRN (01:12)
[2019-10-09] MEDS ORDERED: NALOXONE 0.4 MG/ML 1 ML VIAL IV PRN (01:12)
[2019-10-09] MEDS ORDERED: SODIUM CHLORIDE 0.9% 1,000 ML IV SCH (01:15)
[2019-10-09] MEDS ORDERED: AZITHROMYCIN 500 MG in SODIUM CHLORIDE 0.9% 250 ML IVPB STA (01:30)
[2019-10-09] MEDS ORDERED: PANTOPRAZOLE 40 MG/10 ML VIAL IV SCH (09:00)
[2019-10-09] MEDS ORDERED: Potassium Replacement Protocol 1 EACH MISC MISCELLANE PRN (14:14)
[2019-10-09] MEDS: MAGNESIUM SULFATE-D5W PMX 1 GM in DEXTROSE/WATER 1 100ML.BAG IVPB SCH ×2 (14:28→15:31)
[2019-10-09] MEDS: POTASSIUM CHLORIDE ER 20 MEQ TAB.ER PO SCH ×2 (14:28→15:30)
[2019-10-09 16:53] LABS: Anisocytosis Slight; Basophils % (A) 0 %; Eosinophils # (A) 0.2 k/uL (0-0.7); Eosinophils % (A) 2 %; HCT 25.9 % (34.0-46.0); HGB 7.5 gm/dL (11.4-16.0); Hypochromasia Marked; Lymphocytes # (A) 1.4 k/uL (1.0-4.8); Lymphocytes % (A) 15 %; MCH 23.5 pg (25.0-35.0); MCHC 28.9 g/dL (31.0-37.0); MCV 81.2 fL (80.0-100.0); Mean Platelet Volume 6.6; Microcytosis Slight; Monocytes # (A) 0.5 k/uL (0-1.0); Monocytes % (A) 5 %; Neutrophils # (A) 7.2 k/uL (1.3-7.7); Neutrophils % (A) 76 %; Platelet Count 471 k/uL (150-450); Poikilocytosis Slight; RBC 3.19 m/uL (3.80-5.40); RDW 19.3 % (11.5-15.5); WBC 9.4 k/uL (3.8-10.6)
[2019-10-09 16:58] LABS: ALT 6 U/L (4-34); AST 22 U/L (14-36); African American GFR (CKD) >90 (>60 ml/min/1.73 sqM); Albumin 2.1 g/dL (3.5-5.0); Alkaline Phosphatase 100 U/L (38-126); Anion Gap 8 mmol/L; Blood Urea Nitrogen <2 mg/dL (7-17); Calcium 7.3 mg/dL (8.4-10.2); Carbon Dioxide 22 mmol/L (22-30); Chloride 108 mmol/L (98-107); Glucose 158 mg/dL (74-99); Magnesium 1.6 mg/dL (1.6-2.3); Non-African American GFR(CKD) >90 (>60 ml/min/1.73 sqM); Sodium 138 mmol/L (137-145); Total Bilirubin 0.3 mg/dL (0.2-1.3); Total Protein 5.4 g/dL (6.3-8.2)
[2019-10-09 17:00] LABS: Potassium 3.6 mmol/L (3.5-5.1)
[2019-10-09 17:41] VITALS: BP 158/80; PULSE 68; TEMP 98.4
--- NOTE | 2019-10-09 23:53 | P.HPIM ---
History of Present Illness H&P Date: 10/09/19 Chief Complaint: leg swelling Patient is a 44-year-old female with a known history of hysterectomy, status post colostomy and nephrostomy tube placement at the same time as surgery for hysterectomy about 2 weeks ago, ongoing smoking and marijuana use presents to ER with complaints of bilateral lower extremity swelling. Patient had multiple complications with the surgery requiring colostomy bag and right nephrostomy tube. Patient is being taken care of by visiting nurse at home. Due to leg swelling her surgeon suggested her to go to ER. Otherwise denied any cardiac history previously. No fever no chills. No leg pain. No headache or dizziness or lightheadedness. No chest pain or shortness of breath. Chest x-ray showed no definite acute radiographic process. Bilateral venous duplex showed no sign of DVT in both legs. There is right- sided popliteal cyst. CT angiogram of the chest was done due to elevated d-dimer level which showed no evidence of pulmonary embolism. Infiltrate and atelectasis at the right posterior lung base. Elevated right diaphragm. This could relate to some diaphragm paralysis. EKG showed normal sinus rhythm. Laboratory data showed WBC 13.6, hemoglobin 7.9, RDW 18.6 and platelets 618 D-dimer 3.15 Sodium 138, potassium 3.1, BUN less than 20 creatinine 0.43 Magnesium 1.1 Troponin x1- proBNP 1040 Albumin 2.2 Review of Systems Constitutional: Patient denies any fever or chills . No generalized weakness or weight loss. Abdomen: Patient denied nausea vomiting and diarrhea and abdominal pain. Cardiovascular: Patient denies any chest pain or short of breath no palpitations. leg swelling. Respiratory: patient denied any cough is from production. No shortness of breath Neurologic: Patient denied any numbness or tingling headache. Musculoskeletal: Patient denies any complaints of joint swelling or deformity. Skin: Negative Psychiatric: Negative Endocrine: No heat or cold intolerance. No recent weight gain. Genitourinary: No dysuria or hematuria. All other 14 point ROS negative except the above Past Medical History Past Medical History: No Reported History Additional Past Medical History / Comment(s): hx heavy menses x 4-5 years, History of Any Multi-Drug Resistant Organisms: None Reported Past Surgical History: Section Additional Past Surgical History / Comment(s): hysterectomy Past Anesthesia/Blood Transfusion Reactions: No Reported Reaction Past Psychological History: No Psychological Hx Reported Smoking Status: Current every day smoker Past Alcohol Use History: None Reported Past Drug Use History: Marijuana Additional Drug Use History / Comment(s): last use of marijuana -'mos' ago - Past Family History Mother Family Medical History: No Reported History Father Additional Family Medical History / Comment(s): SPINAL MENINGITIS Brother(s) Family Medical History: No Reported History Medications and Allergies Home Medications Medication Instructions Recorded Confirmed Type Docusate [Colace] 100 mg PO BID 10/08/19 10/08/19 History Ferrous Sulfate [Iron] 325 mg PO TID 10/08/19 10/08/19 History HYDROcodone/APAP 7.5-325MG [[place] 1 tab PO QID PRN 10/08/19 10/08/19 History 7.5-325] Ibuprofen [Motrin] 600 mg PO Q4-6H PRN 10/08/19 10/08/19 History Simethicone 80 mg PO QID PRN 10/08/19 10/08/19 History Terconazole 1 applic VAGINAL DAILY 10/08/19 10/08/19 History Cefuroxime Axetil [Ceftin] 500 mg PO BID 4 Days #8 tab 10/09/19 Rx Magnesium Oxide [Magox 400] 400 mg PO BID 3 Days #6 tablet 10/09/19 Rx Potassium Chloride ER [K-Dur 20] 20 meq PO DAILY #3 tab 10/09/19 Rx Allergies Allergy/AdvReac Type Severity Reaction Status Date / Time No Known Allergies Allergy Verified 10/09/19 03:14 Physical Exam Vitals: Vital Signs Temp Pulse Pulse Resp BP BP Pulse Ox 10/09/19 08:45 99.0 F 10/09/19 08:09 80 18 164/82 98 10/09/19 03:36 83 18 10/09/19 02:55 98 F 83 18 144/70 98 10/09/19 02:24 98.1 F 78 18 156/80 96 10/09/19 00:22 98.2 F 80 18 156/67 97 10/08/19 20:39 98.2 F 71 18 100 Intake and Output 10/08/19 10/09/19 10/09/19 22:59 06:59 14:59 Intake Total 500 Output Total 950 Balance -450 Intake: Oral 500 Output: Drainage 300 Right Back 300 Urine 650 Other: Voiding Method Toilet Toilet Incontinent Bedside Commode # Bowel Movements 1 1 Weight 104.326 kg 108.817 kg PHYSICAL EXAMINATION: Patient is lying in the bed comfortably, no acute distress, awake alert and oriented.. HEENT: Normocephalic. Neck is supple. Pupils reactive. Nostrils clear. Oral cavity is moist. Ears reveal no drainage. Neck reveals no JVD, carotid bruits, or thyromegaly. CHEST EXAMINATION: Trachea is central. Symmetrical expansion. Lung fabian clear to auscultation and percussion. CARDIAC: Normal S1, S2 with no gallops. No murmurs ABDOMEN: Soft. Bowel sounds normal. No organomegaly. No abdominal bruits. Extremities: 2+ edema. No clubbing or cyanosis Neurologically awake, alert, oriented x3 with well-coordinated movements. No focal deficits noted Skin: No rash or skin lesions. Psychiatric: Coperative. Nonsuicidal Musculoskeletal: No joint swelling or deformity. Normal range of motion. Results CBC & Chem 7: 10/09/19 16:28 10/09/19 16:28 Labs: Abnormal Lab Results - Last 24 Hours (Table) 10/08/19 10/08/19 10/08/19 Range/Units 22:31 22:31 22:31 WBC 13.6 H (3.8-10.6) k/uL RBC 3.27 L (3.80-5.40) m/uL Hgb 7.9 L (11.4-16.0) gm/dL Hct 26.2 L (34.0-46.0) % MCH 24.1 L (25.0-35.0) pg MCHC 30.0 L (31.0-37.0) g/dL RDW 18.6 H (11.5-15.5) % Plt Count 618 H (150-450) k/uL Neutrophils # 10.8 H (1.3-7.7) k/uL D-Dimer 3.15 H (<0.60) mg/L FEU Potassium 3.1 L (3.5-5.1) mmol/L BUN <2 L (7-17) mg/dL Creatinine 0.43 L (0.52-1.04) mg/dL Glucose 142 H (74-99) mg/dL Calcium 7.6 L (8.4-10.2) mg/dL Magnesium 1.1 L (1.6-2.3) mg/dL AST 12 L (14-36) U/L Total Protein 5.4 L (6.3-8.2) g/dL Albumin 2.2 L (3.5-5.0) g/dL Urine Appearance (Clear) Urine Protein (Negative) Urine Blood (Negative) Ur Leukocyte Esterase (Negative) Urine RBC (0-5) /hpf Urine WBC (0-5) /hpf Urine WBC Clumps (None) /hpf Urine Bacteria (None) /hpf Urine Mucus (None) /hpf 10/08/19 Range/Units 22:42 WBC (3.8-10.6) k/uL RBC (3.80-5.40) m/uL Hgb (11.4-16.0) gm/dL Hct (34.0-46.0) % MCH (25.0-35.0) pg MCHC (31.0-37.0) g/dL RDW (11.5-15.5) % Plt Count (150-450) k/uL Neutrophils # (1.3-7.7) k/uL D-Dimer (<0.60) mg/L FEU Potassium (3.5-5.1) mmol/L BUN (7-17) mg/dL Creatinine (0.52-1.04) mg/dL Glucose (74-99) mg/dL Calcium (8.4-10.2) mg/dL Magnesium (1.6-2.3) mg/dL AST (14-36) U/L Total Protein (6.3-8.2) g/dL Albumin (3.5-5.0) g/dL Urine Appearance Cloudy H (Clear) Urine Protein 1+ H (Negative) Urine Blood Moderate H (Negative) Ur Leukocyte Esterase Large H (Negative) Urine RBC 23 H (0-5) /hpf Urine WBC >182 H (0-5) /hpf Urine WBC Clumps Moderate H (None) /hpf Urine Bacteria Rare H (None) /hpf Urine Mucus Rare H (None) /hpf Thrombosis Risk Factor Assmnt - DVT/VTE Prophylaxis DVT/VTE Prophylaxis: Pharmacologic Prophylaxis ordered - Choose All That Apply Any of the Below Risk Factors Present?: Yes Each Factor Represents 1 point: Age 41-60 years, History of prior major surgery (<1month), Medical pt on bed rest, Obesity (BMI >25), Swollen legs (current), Varicose veins Other Risk Factors: No Other congenital or acquired thrombophilia - If yes, enter type in comment: No Thrombosis Risk Factor Assessment Total Risk Factor Score: 6 Thrombosis Risk Factor Assessment Level: High Risk Assessment and Plan Assessment: Bilateral lower extremity swelling likely due to dependent edema and hypoal buminemia. Rule out pulmonary embolism and DVT. Right lung base infiltrate possible pneumonia Right possible diaphragmatic paralysis with elevated right diaphragm. Elevated d-dimer level Recent history of hysterectomy complicated requiring colostomy bag and right nephrostomy tube about 2 weeks ago Ongoing nicotine addiction History of marijuana use Hypokalemia and hypomagnesemia Hypoalbuminemia Normocytic anemia Possible iron deficiency anemia DVT prophylaxis heparin subcu Plan: Patient will be continued on antibiotics in the form of ceftriaxone and azithromycin. Continue with incentive spirometry. Replace electrolytes and monitor labs. Negative for DVT and pulmonary embolism. Continue with current management. Time with Patient: Greater than 30
--- NOTE | 2019-10-09 23:57 | P.DS ---
Providers Date of admission: 10/09/19 01:39 Expected date of discharge: 10/09/19 Attending physician: Laurie Mohamud Consults: 10/09/19 01:12 Consult Physician Stat Consulting Provider: Michael Lopez Consult Reason/Comments: UTI, nephrostomy Do you want consulting provider notified?: Yes, Notify in am Primary care physician: Jerica Sanon Hospital Course: Discharge diagnosis Bilateral lower extremity swelling likely due to dependent edema and hypoalbuminemia. Ruled out pulmonary embolism and DVT. 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 Elevated d-dimer level Recent history of hysterectomy complicated requiring colostomy bag and right nephrostomy tube about 2 weeks ago Ongoing nicotine addiction History of marijuana use Hypokalemia and hypomagnesemia Hypoalbuminemia Normocytic anemia Possible iron deficiency anemia DVT prophylaxis heparin subcu Hospital course Patient is a 44-year-old female with a known history of hysterectomy, status post colostomy and nephrostomy tube placement at the same time as surgery for hysterectomy about 2 weeks ago, ongoing smoking and marijuana use presents to ER with complaints of bilateral lower extremity swelling. Patient had multiple complications with the surgery requiring colostomy bag and right nephrostomy tube. Patient is being taken care of by visiting nurse at home. Due to leg swelling her surgeon suggested her to go to ER. Otherwise denied any cardiac history previously. No fever no chills. No leg pain. No headache or dizziness or lightheadedness. No chest pain or shortness of breath. Chest x-ray showed no definite acute radiographic process. Bilateral venous duplex showed no sign of DVT in both legs. There is right- sided popliteal cyst. CT angiogram of the chest was done due to elevated d-dimer level which showed no evidence of pulmonary embolism. Infiltrate and atelectasis at the right po sterior lung base. Elevated right diaphragm. This could relate to some diaphragm paralysis. EKG showed normal sinus rhythm. Laboratory data showed WBC 13.6, hemoglobin 7.9, RDW 18.6 and platelets 618 D-dimer 3.15 Sodium 138, potassium 3.1, BUN less than 20 creatinine 0.43 Magnesium 1.1 Troponin x1- proBNP 1040 Albumin 2.2 Patient was continued on antibiotics in the form of ceftriaxone and azit hromycin. Continue with incentive spirometry. Replace electrolytes and monitor labs. Negative for DVT and pulmonary embolism. Patient was continued on leg elevation and was given a dose of Lasix in the ER. Leg swelling is much improved now. Denied any complaints of chest pain or shortness of breath. Patient wants to be discharged home today. Replaced electrolytes. Patient was advised to stay in the hospital primary 24 hours for further work-up and improvement of leg swelling. Per the patient wants to go home today. Patient will be continued on antibiotic course. Discharge physical examination was done. Vital Signs - 24 hr 10/09/19 10/09/19 10/09/19 00:22 02:24 02:55 Temperature 98.2 F 98.1 F 98 F Pulse Rate 80 78 Pulse Rate [ 83 Pulse Oximetery ] Respiratory 18 18 18 Rate Blood Pressure 156/67 156/80 Blood Pressure 144/70 [Left Arm] O2 Sat by Pulse 97 96 98 Oximetry 10/09/19 10/09/19 10/09/19 03:36 08:09 08:45 Temperature 99.0 F Pulse Rate Pulse Rate [ 83 80 Pulse Oximetery ] Respiratory 18 18 Rate Blood Pressure Blood Pressure 164/82 [Left Arm] O2 Sat by Pulse 98 Oximetry 10/09/19 15:00 Temperature 98.4 F Pulse Rate Pulse Rate [ 68 Pulse Oximetery ] Respiratory 18 Rate Blood Pressure Blood Pressure 158/80 [Left Arm] O2 Sat by Pulse 98 Oximetry Patient Condition at Discharge: Good Plan - Discharge Summary Discharge Rx Participant: Yes New Discharge Prescriptions: New Cefuroxime Axetil [Ceftin] 500 mg PO BID 4 Days #8 tab Potassium Chloride ER [K-Dur 20] 20 meq PO DAILY #3 tab Magnesium Oxide [Magox 400] 400 mg PO BID 3 Days #6 tablet Continue Ferrous Sulfate [Iron] 325 mg PO TID Docusate [Colace] 100 mg PO BID HYDROcodone/APAP 7.5-325MG [[place] 7.5-325] 1 tab PO QID PRN PRN Reason: Pain Ibuprofen [Motrin] 600 mg PO Q4-6H PRN PRN Reason: Pain Simethicone 80 mg PO QID PRN PRN Reason: gas relief Terconazole 1 applic VAGINAL DAILY Discontinued Cephalexin [Keflex] 500 mg PO QID Fluconazole [Diflucan] 150 mg PO Q48H Discharge Medication List Docusate [Colace] 100 mg PO BID 07/30/20 [History] Ferrous Sulfate [Iron] 325 mg PO TID 10/08/19 [History] HYDROcodone/APAP 7.5-325MG [[place] 7.5-325] 1 tab PO QID PRN 10/08/19 [History] Ibuprofen [Motrin] 600 mg PO Q4-6H PRN 10/08/19 [History] Simethicone 80 mg PO QID PRN 10/08/19 [History] Terconazole 1 applic VAGINAL DAILY 10/08/19 [History] Cefuroxime Axetil [Ceftin] 500 mg PO BID 4 Days #8 tab 10/09/19 [Rx] Magnesium Oxide [Magox 400] 400 mg PO BID 3 Days #6 tablet 10/09/19 [Rx] Potassium Chloride ER [K-Dur 20] 20 meq PO DAILY #3 tab 10/09/19 [Rx] Follow up Appointment(s)/Referral(s): [facility], [NON-STAFF] - Jerica Sanon MD [Primary Care Provider] - 1-2 days Activity/Diet/Wound Care/Special Instructions: continue diet as tolerated. Fluids are always encouraged. Continue and finish antibiotics prescribed to you. Follow up with physicians as directed. Call physician or return to ER with returning worsening symptoms, fever 101.1 or higher, not tolerating diet or fluids,pain that is not controlled by prescribed medications. Discharge Disposition: HOME SELF-CARE
--- NOTE | 2019-10-12 13:15 | CDI ---
Documentation Clarification Form Date: 10/12/19 From: Ladonna Corodva [facility] Phone: If you have a question about this query, please contact Vielka Almonte, Manager Of Organizational Development at [phone] between 8am and 5pm. Admit Date: 10/09/19 Discharge Date:10/09/19 Patient Name: Christen Forbes Visit Number: [id number] ATTENTION: The Clinical Documentation Specialists (CDI) and [facility] Coding Staff appreciate your assistance in clarifying documentation. Please respond to the clarification below the line at the bottom and electronically sign. The CDI & [facility] Coding staff will review the response and follow-up if needed. Please note: Queries are made part of the Legal Health Record. If you have any questions, please contact the author of this message via ITS. Dear Dr. Brice, ED notes document: I discussed the case with Dr. Shen Concern for an indwelling nephrostomy tube with evidence of infection would like to admit the Patient for IV antibiotics. She states that she is supposed to follow with urology in 2 weeks to have the tube removed A relationship between diagnoses cannot be assumed unless documented as such by the attending physician. In order to capture the severity of condition; please document the relationship, if any, between these diagnoses. History/Risk Factors: Recent hysterectomy, UTI, Nephrostomy, PNA Clinical Indicators: UTI Treatment: Zithromax 500 mg IVPB, Rocephin 1,000 mg IVP Please clarify if any relationship (due to, caused by, secondary to) exists between these two diagnoses. Please include clinical findings supporting your diagnosis. UTI due to nephrostomy UTI Other explanation of clinical findings (please specify) Unable to determine (no explanation for clinical findings) UTI due to nephrostomy MTDD
== END 2019-10-09 17:55 | disposition home health service (06) ==
LOC: EC 20:38 → INTOOBSV 10-09 01:39 → 6PED 10-09 01:39 → UNDODISIN 10-09 17:55
PROVIDERS: ADMIT Hospitalist; ATTEND Hospitalist
DX: T83.512A Infection and inflammatory reaction due to nephrostomy catheter, initial encounter (principal); M79.89 Other specified soft tissue disorders; R91.8 Other nonspecific abnormal finding of lung field; J98.6 Disorders of diaphragm; R79.1 Abnormal coagulation profile; F17.200 Nicotine dependence, unspecified, uncomplicated; E87.6 Hypokalemia; E83.42 Hypomagnesemia; E88.09 Other disorders of plasma-protein metabolism, not elsewhere classified; D50.0 Iron deficiency anemia secondary to blood loss (chronic); N39.0 Urinary tract infection, site not specified; B96.89 Other specified bacterial agents as the cause of diseases classified elsewhere; R94.31 Abnormal electrocardiogram [ECG] [EKG]; M71.21 Synovial cyst of popliteal space [Baker], right knee; J98.11 Atelectasis; I83.90 Asymptomatic varicose veins of unspecified lower extremity; E66.9 Obesity, unspecified; Z68.36 Body mass index [BMI] 36.0-36.9, adult; Z20.828 Contact with and (suspected) exposure to other viral communicable diseases; Z90.710 Acquired absence of both cervix and uterus; Z93.3 Colostomy status; Z93.6 Other artificial openings of urinary tract status; Z79.899 Other long term (current) drug therapy; Z87.42 Personal history of other diseases of the female genital tract; Z98.890 Other specified postprocedural states; Z83.1 Family history of other infectious and parasitic diseases
CPT/HCPCS: 96366; 96367; 96375 ×3; 96361; 96365; 99285; 36415 ×2; 93005; 85379; 83880; 80053 ×2; 83735 ×2; 84484; 85025 ×2; 85610; 85730; 81001; 87040; 87086; 71046; 93970; 71275; G0378; U0003; J0456; J0696; J1885; J1170; J3475; C9113; Q9967

== ENCOUNTER 2020-06-08 15:22 | Emergency (ER) | payer OTHER ==
[2020-06-08 16:33] VITALS: TEMP 98
--- NOTE | 2020-06-08 17:40 | XR ---
EXAMINATION TYPE: XR knee complete RT DATE OF EXAM: 06/08/2020 COMPARISON: NONE HISTORY: Knee pain. Swelling. TECHNIQUE: 3 views FINDINGS: I see no fracture nor dislocation. There is some mild spurring of the lateral femoral and t ibial condyles. There is no sign of a joint effusion. IMPRESSION: Minor osteoarthritic changes. No fracture.
--- NOTE | 2020-06-08 17:57 | ED ---
Lower Extremity Injury HPI - General Chief Complaint: Extremity Injury, Lower Stated Complaint: Rt Knee Pain Time Seen by Provider: 06/08/20 16:35 Source: patient Mode of arrival: wheelchair Limitations: no limitations - History of Present Illness Initial Comments: Patient is a 45-year-old female presenting to the emergency Department with complaints of right knee pain since yesterday. Patient states she was walking, she walks one to 2 miles daily, she felt like her right knee just gave out and twisted backwards. The anterior and sometimes posterior of her right knee. She denies any falls down. Patient denies any previous surgeries of her right knee. She denies any fevers or chills, no chest pain or shortness of breath. She has no further complaints at this time. - Related Data Home Medications Medication Instructions Recorded Confirmed Docusate [Colace] 100 mg PO BID 10/08/19 10/08/19 Ferrous Sulfate [Iron] 325 mg PO TID 10/08/19 10/08/19 HYDROcodone/APAP 7.5-325MG [[place] 1 tab PO QID PRN 10/08/19 10/08/19 7.5-325] Ibuprofen [Motrin] 600 mg PO Q4-6H PRN 10/08/19 10/08/19 Simethicone 80 mg PO QID PRN 10/08/19 10/08/19 Terconazole 1 applic VAGINAL DAILY 10/08/19 10/08/19 Previous Rx's Medication Instructions Recorded Cefuroxime Axetil [Ceftin] 500 mg PO BID 4 Days #8 tab 10/09/19 Magnesium Oxide [Magox 400] 400 mg PO BID 3 Days #6 tablet 10/09/19 Potassium Chloride ER [K-Dur 20] 20 meq PO DAILY #3 tab 10/09/19 Ibuprofen [Motrin] 600 mg PO Q8HR PRN #30 tab 06/08/20 Allergies Allergy/AdvReac Type Severity Reaction Status Date / Time No Known Allergies Allergy Verified 06/08/20 16:33 Review of Systems ROS Statement: Those systems with pertinent positive or pertinent negative responses have been documented in the HPI. ROS Other: All systems not noted in ROS Statement are negative. Past Medical History Past Medical History: No Reported History Additional Past Medical History / Comment(s): hx heavy menses x 4-5 years, History of Any Multi-Drug Resistant Organisms: None Reported Past Surgical History: Section Additional Past Surgical History / Comment(s): hysterectomy Past Anesthesia/Blood Transfusion Reactions: No Reported Reaction Past Psychological History: No Psychological Hx Reported Smoking Status: Current every day smoker Past Alcohol Use History: None Reported Past Drug Use History: Marijuana - Past Family History Mother Family Medical History: No Reported History Father Additional Family Medical History / Comment(s): SPINAL MENINGITIS Brother(s) Family Medical History: No Reported History General Exam - General Exam Comments Initial Comments: GENERAL: Patient is well-developed and well-nourished. Patient is nontoxic and in no acute distress. HEAD: Atraumatic, normocephalic. EYES: Pupils equal round and reactive to light, extraocular movements intact, sclera anicteric, conjunctiva are normal. Eyelids were unremarkable. ENT: TMs normal, nares patent, oropharynx clear without exudates. Moist mucous membranes. NECK: Normal range of motion, supple without lymphadenopathy or JVD. LUNGS: Unlabored respirations. Breath sounds clear to auscultation bilaterally and equal. No wheezes rales or rhonchi. HEART: Regular rate and rhythm without murmurs, rubs or gallops. ABDOMEN: Soft, nontender, normoactive bowel sounds. No guarding, no rebound. No masses appreciated. : Deferred MUSCULOSKELETAL: Patient has pain with palpation of the anterior and posterior aspect of the right knee, there is some mild to moderate swelling present. She has decreased active range of motion secondary to pain. Neurovascular intact. Rest of ex tremities are within normal limits. No clubbing or cyanosis. NEUROLOGICAL: Patient is alert and oriented x 3. Motor and sensory are also intact. Cranial nerves II through XII grossly intact. Symmetrical smile. Normal speech. PSYCH: Normal mood, normal affect. SKIN: Warm, Dry, normal turgor, no rashes or lesions noted. Limitations: no limitations Course Vital Signs 06/08/20 16:29 Temperature 98.0 F Pulse Rate 72 Respiratory 20 Rate O2 Sat by Pulse 99 Oximetry Medical Decision Making - Medical Decision Making Patient is a 45-year-old female here with right knee pain after she was walking yesterday and it "twisted and popped." No falls. X-rays today reveal no acute fractures dislocations. Rest of her exam is unremarkable. Patient will be given referral to orthopedics, recommended ibuprofen for discomfort and swelling, elevation above heart level. She is in agreement with this plan of care and she is stable for discharge. Case discussed with Dr. duarte. Disposition Clinical Impression: Right knee pain Disposition: HOME SELF-CARE Condition: Stable Instructions (If sedation given, give patient instructions): Knee Pain (ED) Additional Instructions: Please return to the Emergency Department if symptoms worsen or any other concerns. Recommend ibuprofen for pain and swelling. Apply ice to the knee and elevate above the heart level. Follow-up with orthopedics. Prescriptions: Ibuprofen [Motrin] 600 mg PO Q8HR PRN #30 tab PRN Reason: Pain Is patient prescribed a controlled substance at d/c from ED?: No Referrals: Jerica Sanon MD [Primary Care Provider] - 1-2 days Abraham Ascencio PAC [PHYSICIAN RANGE MECHANIC] - 1-2 days Time of Disposition: 17:57
[2020-06-08 19:14] VITALS: BP 136/92; PULSE 75; RESP 18
== END 2020-06-08 18:05 | disposition home or self-care (01) ==
LOC: EC 15:22
DX: M25.561 Pain in right knee (principal); F17.200 Nicotine dependence, unspecified, uncomplicated; Z79.1 Long term (current) use of non-steroidal anti-inflammatories (NSAID); Z79.899 Other long term (current) drug therapy; F12.90 Cannabis use, unspecified, uncomplicated
CPT/HCPCS: 99283

== ENCOUNTER → 2020-11-16 | Outpatient (CLI) | payer OTHER ==
--- NOTE | 2020-11-16 14:22 | US ---
EXAMINATION TYPE: US kidneys/renal and bladder DATE OF EXAM: 11/16/2020 COMPARISON: NONE CLINICAL HISTORY: N13.30 Hydronephrosis. history of hydronephrosis EXAM MEASUREMENTS: Right Kidney: 11.7 x 6.2 x 4.8 cm Left Kidney: 11.0 x 5.4 x 5.1 cm Right Kidney: mild hydronephrosis Left Kidney: no evidence of hydronephrosis Bladder: appears wnl Bilateral Jets seen: no No nephrolithiasis is seen. No masses are identified. The urinary bladder is anechoic. Bilateral u reteral jets are seen. IMPRESSION: Mild right-sided hydronephrosis of uncertain etiology.
== END | disposition home or self-care (01) ==
LOC: RADUSWWP 13:49
PROVIDERS: ATTEND Urology
DX: N13.30 Unspecified hydronephrosis (principal)
CPT/HCPCS: 76770